=== PATIENT | female | born 1990 | race Caucasian/White ===

== ENCOUNTER 2016-03-17 03:16 | Emergency (ER) | payer MEDICAID, OTHER ==
[~2016-03-17] VITALS: Ht 175.3 cm; Wt 65.0 kg
[2016-03-17 03:18] VITALS: BP 143/105; PULSE 120; RESP 16; TEMP 97.5; O2SAT 98
--- NOTE | 2016-03-17 03:43 | PD ---
HPI Chief Complaint: Psychiatric Symptoms Time Seen by Provider: 03:43 Travel History International Travel<30 days: No Contact w/Intl Traveler<30days: No Traveled to known affect area: No History of Present Illness HPI 25-year-old with history of bipolar disorder, PTSD, anxiety, depression, presents to the emergency department voluntarily for psychiatric evaluation. Patient states since being in halfway she has been off of her medication. She states she's been unable to follow-up with a psychiatrist since being released. Patient states that she has no active plan of suicide but feels it would "be better if she just wasn't here." Has a remote history of suicide attempt. Denies any recent illegal drug use. Patient last used IV drugs December 21, 2015. She does smoke tobacco cigarettes. Denies alcohol consumption. She has no other symptoms to report. PFSH Past Medical History Anxiety: Yes Depression: Yes Psychiatric: Yes ?: Not LMP: NOVEMBER Social History Alcohol Use: No Tobacco Use: Yes Substance Use: No Allergies-Medications (Allergen,Severity, Reaction): Coded Allergies: No Known Allergies (Unverified , 03/17/16) Review of Systems Except as stated in HPI: all other systems reviewed are Neg Physical Exam Narrative GENERAL: Well-nourished female patient, in no acute distress SKIN: Warm and dry. HEAD: Atraumatic. Normocephalic. EYES: Pupils equal and round. No scleral icterus. No injection or drainage. ENT: No nasal bleeding or discharge. Mucous membranes pink and moist. NECK: Trachea midline. No JVD. CARDIOVASCULAR: Regular rate and rhythm. No murmur appreciated. RESPIRATORY: No accessory muscle use. Clear to auscultation. Breath sounds equal bilaterally. GASTROINTESTINAL: Abdomen soft, non-tender, nondistended. Hepatic and splenic margins not palpable. MUSCULOSKELETAL: No obvious deformities. No clubbing. No cyanosis. No edema. NEUROLOGICAL: Awake and alert. No obvious cranial nerve deficits. Motor grossly within normal limits. Normal speech. Data Data Last Documented VS Vital Signs Date Time Temp Pulse Resp B/P Pulse Ox O2 Delivery O2 Flow Rate FiO2 03/17/16 03:51 102 16 135/78 98 Room Air 03/17/16 03:18 97.5 Orders Complete Blood Count With Diff (03/17/16 03:38) Basic Metabolic Panel (Bmp) (03/17/16 03:38) Urinalysis - C+S If Indicated (03/17/16 03:38) Psych Screen (03/17/16 03:38) Drug Screen, Random Urine (03/17/16 03:38) Alcohol (Ethanol) (03/17/16 03:38) Ed Urine Pregnancytest Poc (03/17/16 03:38) Labs Laboratory Tests Test 03/17/16 03:40 White Blood Count 5.1 TH/MM3 Red Blood Count 4.38 MIL/MM3 Hemoglobin 11.6 GM/DL Hematocrit 35.5 % Mean Corpuscular Volume 81.1 FL Mean Corpuscular Hemoglobin 26.4 PG Mean Corpuscular Hemoglobin 32.6 % Concent Red Cell Distribution Width 13.2 % Platelet Count 236 TH/MM3 Mean Platelet Volume 8.4 FL Neutrophils (%) (Auto) 55.4 % Lymphocytes (%) (Auto) 33.8 % Monocytes (%) (Auto) 9.7 % Eosinophils (%) (Auto) 0.6 % Basophils (%) (Auto) 0.5 % Neutrophils # (Auto) 2.8 TH/MM3 Lymphocytes # (Auto) 1.7 TH/MM3 Monocytes # (Auto) 0.5 TH/MM3 Eosinophils # (Auto) 0.0 TH/MM3 Basophils # (Auto) 0.0 TH/MM3 CBC Comment DIFF FINAL Differential Comment Urine Color LIGHT-YELLOW Urine Turbidity CLEAR Urine pH 7.0 Urine Specific [place] 1.032 Urine Protein NEG mg/dL Urine Glucose (UA) 1000 mg/dL Urine Ketones 10 mg/dL Urine Occult Blood NEG Urine Nitrite NEG Urine Bilirubin NEG Urine Urobilinogen LESS THAN 2.0 MG/DL Urine Leukocyte Esterase NEG Urine RBC LESS THAN 1 /hpf Urine Squamous Epithelial <1 /hpf Cells Microscopic Urinalysis Comment CULT NOT INDICATED Sodium Level 130 MEQ/L Potassium Level 3.4 MEQ/L Chloride Level 93 MEQ/L Carbon Dioxide Level 27.6 MEQ/L Anion Gap 9 MEQ/L Blood Urea Nitrogen 11 MG/DL Creatinine 0.97 MG/DL Estimat Glomerular Filtration 69 ML/MIN Rate Random Glucose 630 MG/DL Calcium Level 8.4 MG/DL Urine Opiates Screen NEG Urine Barbiturates Screen NEG Urine Amphetamines Screen POS Urine Benzodiazepines Screen NEG Urine Cocaine Screen NEG Urine Cannabinoids Screen NEG Ethyl Alcohol Level LESS THAN 3 MG/DL MDM Medical Decision Making Medical Screen Exam Complete: Yes Emergency Medical Condition: Yes Medical Record Reviewed: Yes Differential Diagnosis Mood disorder versus personality disorder versus adjustment reaction disorder versus substance abuse Narrative Course 25-year-old female presents to emergency department voluntarily for psychiatric evaluation. Patient appears without distress. She is tearful. Patient is tachycardic but this is likely due to her being upset. Pending no acute lab abnormality, patient is medically cleared for psychiatric screening for further evaluation and disposition. Mental health screening discussed with the patient. Psychiatric screen ordered. CBC is without acute concern. Patient's BMP is with a hyponatremia of 130. Patient's glucose is 630. She has no history of diabetes. IV access is obtained and beta hydroxybutyrate is added to the patient's lab. Patient is given normal saline bolus and moved to a medical pod. Diagnosis Primary Impression: Adjustment disorder with depressed mood Additional Impression: Hyperglycemia Condition: Stable Kimberly Parish Mar 17, 2016 03:43
[2016-03-17 03:51] VITALS: BP 135/78; PULSE 102; RESP 16; O2SAT 98
[2016-03-17 03:55] LABS: AUTOMATED NEUTROPHIL # 2.8 TH/MM3 (1.8-7.7); BASOPHIL % 0.5 % (0.0-2.0); EOSINOPHIL % 0.6 % (0.0-4.0); HEMATOCRIT 35.5 % (35.0-46.0); HEMO FLAGS DIFF FINAL; LYMPH % 33.8 % (9.0-44.0); LYMPHOCYTE # 1.7 TH/MM3 (1.0-4.8); MEAN CELL VOLUME 81.1 FL (80.0-100.0); MEAN CORPUSCULAR HEMOGLOBIN 26.4 PG (27.0-34.0); MEAN CORPUSCULAR HGB CONC 32.6 % (32.0-36.0); MONO % 9.7 % (0.0-8.0); NEUT % 55.4 % (16.0-70.0); PLATELET COUNT 236 TH/MM3 (150-450); RED BLOOD COUNT 4.38 MIL/MM3 (4.00-5.30); RED CELL DISTRIBUTION WIDTH 13.2 % (11.6-17.2); WHITE BLOOD COUNT 5.1 TH/MM3 (4.0-11.0)
[2016-03-17 04:07] LABS: BLOOD, URINE NEG (NEG); GLUCOSE,URINE 1000 mg/dL (NEG); KETONE, URINE 10 mg/dL (NEG); NITRITE,URINE NEG (NEG); SQUAMOUS EPITHELIAL CELL URINE <1 /hpf (0-5); URINE COLOR LIGHT-YELLOW (YELLW/STRAW)
[2016-03-17 04:11] LABS: AMPHETAMINE, URINE POS (NEG); BARBITURATES, URINE NEG (NEG); COCAINE, URINE NEG (NEG)
[2016-03-17 04:15] LABS: COMMENT (UR) CULT NOT INDICATED; CULTURE IF INDICATED CULT NOT INDICATED
[2016-03-17 04:16] LABS: ANION GAP 9 MEQ/L (5-15)
[2016-03-17 04:18] LABS: BICARBONATE 27.6 MEQ/L (21.0-32.0); BLOOD UREA NITROGEN 11 MG/DL (7-18); CHLORIDE 93 MEQ/L (98-107); GLOMERULAR FILTRATION RATE 69 ML/MIN (>89); POTASSIUM 3.4 MEQ/L (3.5-5.1); SODIUM (NA) 130 MEQ/L (136-145)
[2016-03-17] MEDS ORDERED: SODIUM CHLOR 0.9% 1000 ML INJ 1,000 ML IV ONE ×2 (04:45)
[2016-03-17] MEDS ORDERED: INSULIN HUMAN REGULAR 1,000 UNITS/10 ML VIAL IV PUSH ONE (05:00)
[2016-03-17 05:06] LABS: BETA-HYDROXYBUTYRATE 0.55 MMOL/L (0.00-0.39)
[2016-03-17] MEDS ORDERED: METF500T PO (06:38)
--- NOTE | 2016-03-17 06:39 | PD ---
Data Data Last Documented VS Vital Signs Date Time Temp Pulse Resp B/P Pulse Ox O2 Delivery O2 Flow Rate FiO2 03/17/16 03:51 102 16 135/78 98 Room Air 03/17/16 03:18 97.5 Orders Complete Blood Count With Diff (03/17/16 03:38) Basic Metabolic Panel (Bmp) (03/17/16 03:38) Urinalysis - C+S If Indicated (03/17/16 03:38) Psych Screen (03/17/16 03:38) Drug Screen, Random Urine (03/17/16 03:38) Alcohol (Ethanol) (03/17/16 03:38) Ed Urine Pregnancytest Poc (03/17/16 03:38) Beta Hydroxybutyrate (Acetone) (03/17/16 04:32) Iv Access Insert/Monitor (03/17/16 04:32) Sodium Chlor 0.9% 1000 Ml Inj (Ns 1000 M (03/17/16 04:45) Sodium Chlor 0.9% 1000 Ml Inj (Ns 1000 M (03/17/16 04:45) Hemoglobin (Hgb) A1c (03/17/16 04:32) ^ Insert Iv (03/17/16 04:50) Insulin Human Regular Inj (Novolin R Inj (03/17/16 05:00) Labs Laboratory Tests Test 03/17/16 03:40 White Blood Count 5.1 TH/MM3 Red Blood Count 4.38 MIL/MM3 Hemoglobin 11.6 GM/DL Hematocrit 35.5 % Mean Corpuscular Volume 81.1 FL Mean Corpuscular Hemoglobin 26.4 PG Mean Corpuscular Hemoglobin 32.6 % Concent Red Cell Distribution Width 13.2 % Platelet Count 236 TH/MM3 Mean Platelet Volume 8.4 FL Neutrophils (%) (Auto) 55.4 % Lymphocytes (%) (Auto) 33.8 % Monocytes (%) (Auto) 9.7 % Eosinophils (%) (Auto) 0.6 % Basophils (%) (Auto) 0.5 % Neutrophils # (Auto) 2.8 TH/MM3 Lymphocytes # (Auto) 1.7 TH/MM3 Monocytes # (Auto) 0.5 TH/MM3 Eosinophils # (Auto) 0.0 TH/MM3 Basophils # (Auto) 0.0 TH/MM3 CBC Comment DIFF FINAL Differential Comment Urine Color LIGHT-YELLOW Urine Turbidity CLEAR Urine pH 7.0 Urine Specific [place] 1.032 Urine Protein NEG mg/dL Urine Glucose (UA) 1000 mg/dL Urine Ketones 10 mg/dL Urine Occult Blood NEG Urine Nitrite NEG Urine Bilirubin NEG Urine Urobilinogen LESS THAN 2.0 MG/DL Urine Leukocyte Esterase NEG Urine RBC LESS THAN 1 /hpf Urine Squamous Epithelial <1 /hpf Cells Microscopic Urinalysis Comment CULT NOT INDICATED Sodium Level 130 MEQ/L Potassium Level 3.4 MEQ/L Chloride Level 93 MEQ/L Carbon Dioxide Level 27.6 MEQ/L Anion Gap 9 MEQ/L Blood Urea Nitrogen 11 MG/DL Creatinine 0.97 MG/DL Estimat Glomerular Filtration 69 ML/MIN Rate Random Glucose 630 MG/DL Calcium Level 8.4 MG/DL Urine Opiates Screen NEG Urine Barbiturates Screen NEG Urine Amphetamines Screen POS Urine Benzodiazepines Screen NEG Urine Cocaine Screen NEG Urine Cannabinoids Screen NEG Ethyl Alcohol Level LESS THAN 3 MG/DL B-Hydroxybutyrate 0.55 MMOL/L MDM Supervised Visit with ANDREW: Yes Narrative Course The history, exam, and medical decision-making in the associated midlevel provider note were completed with my assistance. I reviewed and agree with the findings presented. I attest that I had a [id number] encounter with the patient on the same day, and personally performed and documented my assessment and findings in the medical record. *My assessment and Findings: This is a 25-year-old female who presents to the emergency department with suicidal ideation. She was found to have hyperglycemia on labs. She has no known diagnosis of diabetes. She's not in DKA. I think it's reasonable to start the patient on a low-dose metformin. She was counseled on diabetic diet and asked to follow-up with the primary care physician. Sugar was 280 after 2 L of IV hydration and IV insulin. I think she is appropriate for psychiatric evaluation. Diagnosis Primary Impression: Adjustment disorder with depressed mood Additional Impression: Hyperglycemia Scripts Metformin 500 Mg [id number] Mg PO BIDPC #60 TAB Ref 0 With meals Prov:Samantha Land MD 03/17/16 Disposition: 01 DISCHARGE HOME Condition: Stable Samantha Land MD Mar 17, 2016 06:39
[2016-03-17 07:08] VITALS: BP 147/102; PULSE 100; RESP 18; O2SAT 97
[2016-03-17 07:43] VITALS: TEMP 99
[2016-03-17 10:11] VITALS: BP 132/84; PULSE 103; RESP 17; O2SAT 98
[2016-03-17 11:56] LABS: HEMOGLOBIN A1a 1.3 %; HEMOGLOBIN A1b 1.6 %; HEMOGLOBIN Ao 66.3 %; HEMOGLOBIN F 2.9 %; HEMOGLOBIN LA1C 5.1 %; HEMOGLOBIN P3 6.4 %
== END 2016-03-17 11:26 | disposition home or self-care (01) ==
LOC: NEPE 03:16 → NEPJ 11:26
DX: F43.21 Adjustment disorder with depressed mood (principal); R73.9 Hyperglycemia, unspecified; E87.1 Hypo-osmolality and hyponatremia; Z72.0 Tobacco use; Z86.59 Personal history of other mental and behavioral disorders
CPT/HCPCS: 80048; 80307; 80320; 81001; 82010; 83036; 84703; 85025; 96361; 96374; 99283; J1815; J7030